=== PATIENT | male | born 1995 ===

== ENCOUNTER → 2021-06-07 | Outpatient (REF) ==
--- NOTE | 2021-06-07 11:07 | REP ---
INDICATION: SOB. COMPARISON: None. TECHNIQUE: PA and lateral FINDINGS: The superior mediastinal structures are midline. The cardiac silhouette is unremarkable in size, shape, and position. The diaphragmatic surfaces of the lungs are regular, and the costophrenic angles are clear. The pulmonary gomez are clear. The imaged osseous structures are intact. IMPRESSION: There is no acute cardiopulmonary disease. <Electronically signed by Maxwell Crawford > 06/07/21 2762
== END ==
LOC: M PLAIMG 10:33
PROVIDERS: ATTEND Internal Medicine
DX: R06.02 Shortness of breath (principal)